=== PATIENT | female | born 1940 | race Asian ===

== ENCOUNTER 2017-05-02 17:20 | Emergency (ER) | payer OTHER ==
[~2017-05-02] VITALS: Ht 149.9 cm; Wt 68.2 kg
[~2017-05-02 17:20] MED LIST: AMLO-511 PO; ATOR10TA84 PO; CHOL200016 PO; CLOP75TA32 PO; GLIM2 PO; LOSA50TA37 PO; METF10002 PO; OS500 PO; OXYB5TAB PO
[2017-05-02 19:04] LABS: BASOPHILS % (AUTO) 0.4 % (0.0-2.0); HEMATOCRIT 35.5 % (36-46); LYMPHOCYTES # (AUTO) 2.6 K/uL (1.0-4.8); LYMPHOCYTES % (AUTO) 36.4 % (22.0-44.0); MEAN CORPUSCULAR HEMOGLOBIN 31.3 pg (26.0-34.0); MEAN CORPUSCULAR HGB CONC 33.7 G/dL (31.0-37.0); MEAN CORPUSCULAR VOLUME 93 fL (80-100); MONOCYTES # (AUTO) 0.6 K/uL (0.1-1.0); MONOCYTES % (AUTO) 8.6 % (2.0-9.0); NEUTROPHILS # (AUTO) 3.8 K/uL (1.8-7.7); NEUTROPHILS % (AUTO) 53.6 % (40.0-70.0); PLATELET COUNT (AUTO) 263 K/uL (150-450); RED BLOOD CELL COUNT(AUTO) 3.83 MIL/uL (4.00-5.20); RED CELL DISTRIBUTION WIDTH 14.7 % (11.5-14.5); WHITE BLOOD COUNT (AUTO) 7.1 K/uL (4.5-11.0)
[2017-05-02 19:15] LABS: ANION GAP 11 mmol/L (8-16); CALCIUM, TOTAL 9.8 mg/dL (8.8-10.5); CARBON DIOXIDE 27 mmol/L (22-29); CHLORIDE 102 mmol/L (98-107); CREATININE 1.19 mg/dL (0.60-1.30); GLOMERULAR FILTR. RATE CALC 44 mL/min (>60); POTASSIUM 3.9 mmol/L (3.5-5.1); UREA NITROGEN, BLOOD 25 mg/dL (7-18)
[2017-05-02 19:16] LABS: SODIUM SERUM 140 mmol/L (136-145)
[2017-05-02 19:22] LABS: B-TYPE NATRIURETIC PEPTIDE 83 pg/mL (0-100)
[2017-05-02 19:50] LABS: ALANINE AMINOTRANSFERASE 27 U/L (12-78); ALBUMIN 4.3 g/dL (3.4-5.0); ASPARTATE AMINOTRANSFERASE 26 U/L (15-37); BILIRUBIN,TOTAL 0.4 mg/dL (0.1-1.0); CREATINE KINASE MB 1.2 ng/mL (0-5); CREATINE KINASE, TOTAL 134 U/L (26-192); TOTAL PROTEIN, SERUM 8.1 g/dL (6.4-8.2)
[2017-05-02 20:41] LABS: APPEARANCE,URINE CLEAR (CLEAR); GLUCOSE, URINE (UA) NEGATIVE (NEGATIVE); KETONES,URINE NEGATIVE (NEGATIVE); LEUKOCYTE ESTERASE ,URINE NEGATIVE (NEGATIVE); OCCULT BLOOD,URINE NEGATIVE (NEGATIVE); PH,URINE 5.5 (5.0-8.0); PROTEIN,URINE NEGATIVE (NEGATIVE)
[2017-05-02 20:43] LABS: ADD UA MICROSCOPIC NO
[2017-05-02 20:46] VITALS: BP 131/68
== END 2017-05-02 21:08 | disposition home or self-care (01) ==
LOC: EMS 17:21
DX: T67.5XXA Heat exhaustion, unspecified, initial encounter (principal); R06.00 Dyspnea, unspecified; R53.1 Weakness; E11.9 Type 2 diabetes mellitus without complications; E78.00 Pure hypercholesterolemia, unspecified; I10 Essential (primary) hypertension; Z88.6 Allergy status to analgesic agent; X30.XXXA Exposure to excessive natural heat, initial encounter; Y93.G3 Activity, cooking and baking; Y92.89 Other specified places as the place of occurrence of the external cause; Y99.8 Other external cause status
CPT/HCPCS: 82962; 93005; 99285

== ENCOUNTER → 2017-10-02 | Outpatient (CLI) | payer OTHER | END | disposition home or self-care (01) | LOC: RADPV 07:13 | PROVIDERS: ATTEND Internal Medicine | DX: M16.0 Bilateral primary osteoarthritis of hip (principal); M81.0 Age-related osteoporosis without current pathological fracture; M76.02 Gluteal tendinitis, left hip; M76.01 Gluteal tendinitis, right hip; M25.852 Other specified joint disorders, left hip; M25.851 Other specified joint disorders, right hip | CPT/HCPCS: 73521 ==

== ENCOUNTER 2017-11-24 12:32 | Emergency (ER) | payer OTHER ==
[~2017-11-24] VITALS: Ht 149.9 cm; Wt 68.6 kg
[2017-11-24] MEDS ORDERED: HYDR-2924 PO (12:40)
[2017-11-24 12:43] LABS: GLUCOSE,POINT OF CARE 186 MG/DL (70-110)
[2017-11-24 13:37] LABS: GLUCOSE,POINT OF CARE 152 MG/DL (70-110)
[2017-11-24 14:18] LABS: GLUCOSE,POINT OF CARE 131 MG/DL (70-110)
[2017-11-24 15:32] LABS: GLUCOSE,POINT OF CARE 114 MG/DL (70-110)
[2017-11-24 15:57] VITALS: BP 118/52
[2017-11-24 16:13] LABS: GLUCOSE,POINT OF CARE 107 MG/DL (70-110)
== END 2017-11-24 16:06 | disposition home or self-care (01) ==
LOC: EMS 12:33
DX: E11.9 Type 2 diabetes mellitus without complications (principal); I10 Essential (primary) hypertension; E78.00 Pure hypercholesterolemia, unspecified; Z79.84 Long term (current) use of oral hypoglycemic drugs; Z88.6 Allergy status to analgesic agent
CPT/HCPCS: 82962; 99283

== ENCOUNTER 2018-09-28 14:03 | Emergency (ER) | payer OTHER ==
[~2018-09-28] VITALS: Ht 152.4 cm; Wt 69.1 kg
[~2018-09-28 14:03] MED LIST changes: -AMLO-511 PO; -CHOL200016 PO; +CHOL200059 PO; -CLOP75TA32 PO; +HYDR-2924 PO; -LOSA50TA37 PO; +LOSA50TA64 PO; +METF-446 PO; -METF10002 PO
[2018-09-28 14:24] LABS: GLUCOSE,POINT OF CARE 262 MG/DL (70-110)
[2018-09-28] MEDS ORDERED: CLOP75 PO (14:28)
[2018-09-28] MEDS ORDERED: OXYB5 PO (14:29)
[2018-09-28] MEDS ORDERED: LOSA50TA64 PO (14:30)
[2018-09-28] MEDS ORDERED: LEVO2.5S4 PO (14:30)
[2018-09-28] MEDS ORDERED: ACETAMINOPHEN/CODEINE 300-15 MG TABLET PO ONE (16:00)
[2018-09-28 16:42] VITALS: BP 144/68
== END 2018-09-28 16:44 | disposition home or self-care (01) ==
LOC: EMS 14:04
DX: M25.551 Pain in right hip (principal); E11.9 Type 2 diabetes mellitus without complications; E78.00 Pure hypercholesterolemia, unspecified; I10 Essential (primary) hypertension; Z88.6 Allergy status to analgesic agent; Z79.01 Long term (current) use of anticoagulants; Z79.84 Long term (current) use of oral hypoglycemic drugs; Z79.899 Other long term (current) drug therapy

== ENCOUNTER 2018-12-02 18:36 | Emergency (ER) | payer OTHER ==
[~2018-12-02] VITALS: Ht 149.9 cm; Wt 68.2 kg
[~2018-12-02 18:36] MED LIST changes: +CLOP75TA17 PO; +LEVO2.5S4 PO; +OXYB5 PO
[2018-12-02 19:33] LABS: GLUCOSE,POINT OF CARE 219 MG/DL (70-110)
[2018-12-02 19:56] VITALS: BP 168/85
== END 2018-12-02 19:57 | disposition home or self-care (01) ==
LOC: EMS 18:36
DX: B35.4 Tinea corporis (principal); E11.9 Type 2 diabetes mellitus without complications; E78.00 Pure hypercholesterolemia, unspecified; I10 Essential (primary) hypertension; Z79.899 Other long term (current) drug therapy; Z88.6 Allergy status to analgesic agent

== ENCOUNTER 2019-01-23 13:39 | Emergency (ER) | payer OTHER ==
[~2019-01-23] VITALS: Ht 149.9 cm; Wt 70.5 kg
[~2019-01-23 13:39] MED LIST changes: -CLOP75TA17 PO; +CLOP75TA3 PO
[2019-01-23 13:54] LABS: GLUCOSE,POINT OF CARE 197 MG/DL (70-110)
[2019-01-23 15:25] LABS: APPEARANCE,URINE CLEAR (CLEAR); BILIRUBIN,URINE NEGATIVE (NEGATIVE); GLUCOSE, URINE (UA) NEGATIVE (NEGATIVE); KETONES,URINE NEGATIVE (NEGATIVE); LEUKOCYTE ESTERASE ,URINE NEGATIVE (NEGATIVE); NITRATE,URINE NEGATIVE (NEGATIVE); OCCULT BLOOD,URINE SMALL (NEGATIVE); PH,URINE 5.5 (5.0-8.0); PROTEIN,URINE NEGATIVE (NEGATIVE); UROBILINOGEN,URINE 0.2 mg/dL (<=1.0)
[2019-01-23 15:45] LABS: BACTERIA,URINE None Seen /HPF (None Seen); RBC,URINE 0-2 /HPF (0-2); SQUAMOUS EPITHELIAL CELL,UR Few /LPF (None Seen); WBC,URINE None Seen /HPF (0-5)
[2019-01-23 15:59] LABS: BASOPHILS % (AUTO) 0.5 % (0.0-2.0); EOSINOPHILS % (AUTO) 0.7 % (1.0-6.0); HEMATOCRIT 35.1 % (36-46); HEMOGLOBIN 11.6 g/dL (12.0-16.0); LYMPHOCYTES # (AUTO) 1.8 K/uL (1.0-4.8); LYMPHOCYTES % (AUTO) 34.7 % (22.0-44.0); MEAN CORPUSCULAR HEMOGLOBIN 31.1 pg (26.0-34.0); MEAN CORPUSCULAR HGB CONC 33.1 G/dL (31.0-37.0); MEAN CORPUSCULAR VOLUME 94 fL (80-100); MONOCYTES # (AUTO) 0.7 K/uL (0.1-1.0); MONOCYTES % (AUTO) 14.6 % (2.0-9.0); NEUTROPHILS # (AUTO) 2.5 K/uL (1.8-7.7); NEUTROPHILS % (AUTO) 49.5 % (40.0-70.0); PLATELET COUNT (AUTO) 217 K/uL (150-450); RED BLOOD CELL COUNT(AUTO) 3.74 MIL/uL (4.00-5.20); RED CELL DISTRIBUTION WIDTH 13.5 % (11.5-14.5)
[2019-01-23 16:09] LABS: CALCIUM, TOTAL 9.4 mg/dL (8.8-10.5); CREATININE 1.19 mg/dL (0.60-1.30); POTASSIUM 3.7 mmol/L (3.5-5.1)
[2019-01-23 16:34] LABS: ALBUMIN 3.9 g/dL (3.4-5.0); BILIRUBIN,TOTAL 0.3 mg/dL (0.1-1.0); TOTAL PROTEIN, SERUM 7.5 g/dL (6.4-8.2)
[2019-01-23] MEDS ORDERED: LEVO5TAB13 PO (17:13)
[2019-01-23] MEDS ORDERED: LEVOFLOXACIN 500 MG TABLET PO ONE (17:15)
[2019-01-23] MEDS ORDERED: IPRATROPIUM BROMIDE 0.5 MG/2.5 ML NEB SOLUTION NEB ONE (17:15)
[2019-01-23] MEDS ORDERED: ALBUTEROL SULFATE 2.5 MG/0.5 ML NEB SOLUTION NEB ONE (17:15)
[2019-01-23 18:07] VITALS: BP 159/78
== END 2019-01-23 18:29 | disposition home or self-care (01) ==
LOC: EMS 13:40
DX: J20.9 Acute bronchitis, unspecified (principal); E11.9 Type 2 diabetes mellitus without complications; E78.00 Pure hypercholesterolemia, unspecified; I10 Essential (primary) hypertension; Z88.6 Allergy status to analgesic agent; Z79.84 Long term (current) use of oral hypoglycemic drugs
CPT/HCPCS: 93005; 94640

== ENCOUNTER 2019-01-26 21:51 | Emergency (ER) | payer OTHER ==
[~2019-01-26] VITALS: Ht 149.9 cm; Wt 69.5 kg
[~2019-01-26 21:51] MED LIST changes: -LEVO2.5S4 PO; +LEVO5TAB13 PO; -OXYB5 PO
[2019-01-26 22:19] LABS: GLUCOSE,POINT OF CARE 147 MG/DL (70-110)
[2019-01-26 23:09] LABS: GLUCOSE,POINT OF CARE 133 MG/DL (70-110)
[2019-01-26] MEDS ORDERED: ALBUTEROL SULFATE 2.5 MG/0.5 ML NEB SOLUTION NEB ONE (23:15)
[2019-01-26] MEDS ORDERED: IPRATROPIUM BROMIDE 0.5 MG/2.5 ML NEB SOLUTION NEB ONE (23:15)
[2019-01-26] MEDS ORDERED: MethylPREDNISolone SOD SUCC 125 MG/2 ML VIAL IVP ONE (23:15)
[2019-01-26 23:31] LABS: APPEARANCE,URINE CLEAR (CLEAR); BILIRUBIN,URINE NEGATIVE (NEGATIVE); GLUCOSE, URINE (UA) NEGATIVE (NEGATIVE); KETONES,URINE NEGATIVE (NEGATIVE); LEUKOCYTE ESTERASE ,URINE NEGATIVE (NEGATIVE); NITRATE,URINE NEGATIVE (NEGATIVE); OCCULT BLOOD,URINE NEGATIVE (NEGATIVE); PROTEIN,URINE NEGATIVE (NEGATIVE); UROBILINOGEN,URINE 0.2 mg/dL (<=1.0)
[2019-01-27 00:01] LABS: BASOPHILS % (AUTO) 0.3 % (0.0-2.0); EOSINOPHILS % (AUTO) 1.2 % (1.0-6.0); HEMATOCRIT 34.4 % (36-46); HEMOGLOBIN 11.2 g/dL (12.0-16.0); LYMPHOCYTES # (AUTO) 2.7 K/uL (1.0-4.8); LYMPHOCYTES % (AUTO) 39.9 % (22.0-44.0); MEAN CORPUSCULAR HEMOGLOBIN 30.7 pg (26.0-34.0); MEAN CORPUSCULAR HGB CONC 32.6 G/dL (31.0-37.0); MEAN CORPUSCULAR VOLUME 94 fL (80-100); MONOCYTES # (AUTO) 0.7 K/uL (0.1-1.0); MONOCYTES % (AUTO) 10.7 % (2.0-9.0); NEUTROPHILS # (AUTO) 3.2 K/uL (1.8-7.7); NEUTROPHILS % (AUTO) 47.9 % (40.0-70.0); PLATELET COUNT (AUTO) 204 K/uL (150-450); RED BLOOD CELL COUNT(AUTO) 3.66 MIL/uL (4.00-5.20); RED CELL DISTRIBUTION WIDTH 13.4 % (11.5-14.5)
[2019-01-27 00:10] LABS: CALCIUM, TOTAL 9.4 mg/dL (8.8-10.5); CREATININE 1.74 mg/dL (0.60-1.30); POTASSIUM 3.9 mmol/L (3.5-5.1)
[2019-01-27 00:16] LABS: ALBUMIN 3.6 g/dL (3.4-5.0); BILIRUBIN,TOTAL 0.4 mg/dL (0.1-1.0); TOTAL PROTEIN, SERUM 7.4 g/dL (6.4-8.2)
[2019-01-27] MEDS ORDERED: SODIUM CHLORIDE 0.9% 1,000 ML IV ONE (04:45)
[2019-01-27 09:29] LABS: GLUCOSE,POINT OF CARE 177 MG/DL (70-110)
[2019-01-27 09:30] VITALS: BP 134/56
== END 2019-01-27 09:30 | disposition short-term general hospital (02) ==
LOC: EMS 21:52
DX: J20.9 Acute bronchitis, unspecified (principal); N28.9 Disorder of kidney and ureter, unspecified; R79.89 Other specified abnormal findings of blood chemistry; E11.9 Type 2 diabetes mellitus without complications; I10 Essential (primary) hypertension; E78.00 Pure hypercholesterolemia, unspecified; Z88.6 Allergy status to analgesic agent; Z79.84 Long term (current) use of oral hypoglycemic drugs; Z79.899 Other long term (current) drug therapy
CPT/HCPCS: 36415; 71045; 80053; 81003; 82962; 83880; 84484; 85025; 93005 ×2; 94640; 96361; 96374; 99285; J2930; J7030

== ENCOUNTER 2020-07-29 14:29 | Emergency (ER) | payer OTHER ==
[~2020-07-29] VITALS: Ht 149.9 cm; Wt 70.9 kg
[~2020-07-29 14:29] MED LIST changes: +CHOL200016 PO; -CHOL200059 PO; +CLOP-31 PO; -CLOP75TA3 PO; +LOSA50TA37 PO; -LOSA50TA64 PO
[2020-07-29] MEDS ORDERED: HYDR25TA84 PO (14:40)
[2020-07-29] MEDS ORDERED: OS500 PO (14:40)
[2020-07-29] MEDS ORDERED: METF-960 PO (14:40)
[2020-07-29] MEDS ORDERED: EMPA10TA PO (14:40)
[2020-07-29] MEDS ORDERED: CLOP-31 PO (14:40)
[2020-07-29] MEDS ORDERED: MAGNESIUM CITRATE 300 ML ORAL SOLUTION PO ONE (16:00)
[2020-07-29] MEDS ORDERED: OXYB5XL PO (16:04)
[2020-07-29] MEDS ORDERED: CHOL100018 PO (16:04)
[2020-07-29] MEDS ORDERED: IOVERSOL 320 MG/ML 100 ML VIAL ONE (16:10)
[2020-07-29] MEDS ORDERED: SODIUM CHLORIDE 0.9% 0 ML ONE (16:10)
[2020-07-29 16:17] LABS: BASOPHILS % (AUTO) 0.6 % (0.0-2.0); EOSINOPHILS % (AUTO) 0.7 % (1.0-6.0); HEMATOCRIT 39.3 % (36-46); HEMOGLOBIN 12.9 g/dL (12.0-16.0); LYMPHOCYTES # (AUTO) 2.4 K/uL (1.0-4.8); LYMPHOCYTES % (AUTO) 31.3 % (22.0-44.0); MEAN CORPUSCULAR HEMOGLOBIN 31.1 pg (26.0-34.0); MEAN CORPUSCULAR HGB CONC 32.8 G/dL (31.0-37.0); MEAN CORPUSCULAR VOLUME 95 fL (80-100); MONOCYTES # (AUTO) 0.6 K/uL (0.1-1.0); MONOCYTES % (AUTO) 8.1 % (2.0-9.0); NEUTROPHILS # (AUTO) 4.5 K/uL (1.8-7.7); NEUTROPHILS % (AUTO) 59.3 % (40.0-70.0); PLATELET COUNT (AUTO) 239 K/uL (150-450); RED BLOOD CELL COUNT(AUTO) 4.15 MIL/uL (4.00-5.20); RED CELL DISTRIBUTION WIDTH 13.6 % (11.5-14.5)
[2020-07-29 16:33] LABS: CALCIUM, TOTAL 9.6 mg/dL (8.8-10.5); CREATININE 1.44 mg/dL (0.60-1.30); POTASSIUM 4.2 mmol/L (3.5-5.1)
[2020-07-29 16:39] LABS: BILIRUBIN,TOTAL 0.4 mg/dL (0.1-1.0); TOTAL PROTEIN, SERUM 7.6 g/dL (6.4-8.2)
[2020-07-29 18:10] VITALS: BP 117/50
[2020-07-29 18:27] LABS: COVID AG,FIA SOURCE NASAL SWAB
[2020-07-29 20:44] LABS: GLUCOSE,POINT OF CARE 238 MG/DL (70-110)
== END 2020-07-29 18:47 | disposition home or self-care (01) ==
LOC: EMS 14:32
DX: K59.00 Constipation, unspecified (principal); K80.20 Calculus of gallbladder without cholecystitis without obstruction; E11.9 Type 2 diabetes mellitus without complications; E78.00 Pure hypercholesterolemia, unspecified; I10 Essential (primary) hypertension; Z20.828 Contact with and (suspected) exposure to other viral communicable diseases; Z88.6 Allergy status to analgesic agent
CPT/HCPCS: 36415; 74176; 80053; 82962; 83690; 85025; 87426; 99284; C9803; J7050

== ENCOUNTER 2021-01-28 08:55 | Emergency (ER) | payer MEDICARE, OTHER ==
[~2021-01-28] VITALS: Ht 152.4 cm; Wt 81.8 kg
[~2021-01-28 08:55] MED LIST changes: +CHOL100044 PO; -CHOL200016 PO; -CLOP-31 PO; +CLOP75TA60 PO; +EMPA10TA PO; -GLIM2 PO; -HYDR-2924 PO; +HYDR25TA84 PO; -LEVO5TAB13 PO; -METF-446 PO; +METF-960 PO; -OXYB5TAB PO; +OXYB5XL PO
[2021-01-28 09:35] LABS: BASOPHILS % (AUTO) 0.4 % (0.0-2.0); EOSINOPHILS % (AUTO) 0.7 % (1.0-6.0); HEMATOCRIT 37.8 % (36-46); HEMOGLOBIN 12.7 g/dL (12.0-16.0); LYMPHOCYTES # (AUTO) 2.1 K/uL (1.0-4.8); LYMPHOCYTES % (AUTO) 34.2 % (22.0-44.0); MEAN CORPUSCULAR HEMOGLOBIN 31.3 pg (26.0-34.0); MEAN CORPUSCULAR HGB CONC 33.5 G/dL (31.0-37.0); MEAN CORPUSCULAR VOLUME 94 fL (80-100); MONOCYTES # (AUTO) 0.4 K/uL (0.1-1.0); MONOCYTES % (AUTO) 6.6 % (2.0-9.0); NEUTROPHILS # (AUTO) 3.6 K/uL (1.8-7.7); NEUTROPHILS % (AUTO) 58.1 % (40.0-70.0); PLATELET COUNT (AUTO) 219 K/uL (150-450); RED BLOOD CELL COUNT(AUTO) 4.05 MIL/uL (4.00-5.20); RED CELL DISTRIBUTION WIDTH 13.5 % (11.5-14.5)
[2021-01-28 09:43] LABS: CALCIUM, TOTAL 9.4 mg/dL (8.8-10.5); CREATININE 1.03 mg/dL (0.60-1.30); POTASSIUM 3.4 mmol/L (3.5-5.1)
[2021-01-28 09:45] LABS: PROTHROMBIN TIME 10.3 SEC (9.4-11.6)
[2021-01-28] MEDS ORDERED: ONDANSETRON HCL 4 MG/2 ML VIAL IVP ONE (09:45)
[2021-01-28] MEDS ORDERED: MECLIZINE HCL 25 MG TABLET PO ONE (09:45)
[2021-01-28 09:49] LABS: ALBUMIN 4.2 g/dL (3.4-5.0); BILIRUBIN,TOTAL 0.7 mg/dL (0.1-1.0); TOTAL PROTEIN, SERUM 8.1 g/dL (6.4-8.2)
[2021-01-28] MEDS ORDERED: INSULIN REGULAR, HUMAN 100 UNITS/ML IVP ONE (10:30)
[2021-01-28 10:33] LABS: APPEARANCE,URINE CLEAR (CLEAR); BILIRUBIN,URINE NEGATIVE (NEGATIVE); GLUCOSE, URINE (UA) >=1000 mg/dL (NEGATIVE); KETONES,URINE NEGATIVE (NEGATIVE); LEUKOCYTE ESTERASE ,URINE NEGATIVE (NEGATIVE); NITRATE,URINE NEGATIVE (NEGATIVE); OCCULT BLOOD,URINE SMALL (NEGATIVE); PROTEIN,URINE SEE CONFIRM (NEGATIVE); UROBILINOGEN,URINE 0.2 mg/dL (<=1.0)
[2021-01-28 10:39] LABS: GLUCOSE,POINT OF CARE 289 MG/DL (70-110)
[2021-01-28 10:50] LABS: SULFOSALICYLIC ACID,URINE 2+ (Negative)
[2021-01-28 10:51] LABS: BACTERIA,URINE None Seen /HPF (None Seen); RBC,URINE 0-2 /HPF (0-2); SQUAMOUS EPITHELIAL CELL,UR Few /LPF (None Seen); WBC,URINE 0-2 /HPF (0-5)
[2021-01-28 11:30] VITALS: BP 157/79
== END 2021-01-28 11:52 | disposition home or self-care (01) ==
LOC: EMS 09:14
DX: H81.391 Other peripheral vertigo, right ear (principal); E11.9 Type 2 diabetes mellitus without complications; E78.00 Pure hypercholesterolemia, unspecified
CPT/HCPCS: 36415; 70450; 80053; 81001; 82962; 83690; 84484; 85025; 85610; 93005; 96374; 96375; 99285; J1815; J2405; 82948